=== PATIENT | female | born 2000 | race Asian ===

== ENCOUNTER 2022-04-03 06:04 | Day surgery (SDC) | payer SELFPAY ==
--- NOTE | 2022-04-03 | GASB_PTH ---
PATIENT: KAREN SOLO LOC: [facility] U#:[id number] AGE/SX: 21/F ROOM: RE04/03/[address]: Dr. Jam Deleon DO : 2000 BED: DIS: 04/03/2022 SPEC #: [id number] RECD: 04/03/22 13:23 STATUS: STEPHEN JORDAN #: [id number] BRENT: 04/03/22 00:[address]: Jam Deleon DEPT: SURGICAL PATHOLOGY RECD BY: Jimmie Pink ENTERED: 04/04/22 09:32 SP TYPE: Gastric Bx MI DR: Amairani Montana, MATEO Tissues: A - Gastric mucous membrane B - Duodenum, NOS C - Esophageal mucous membrane Procedures: Special Stain Group II Surgery Specimen Level IV Alcian Blue/PAS (control) HEADER OPERATION: EGD ([facility] [place]) PRE-OP DIAGNOSIS: Constipation, GERD, epigastric pain TISSUE SUBMITTED: A ? Gastric body biopsy, B ? Duodenum biopsy, C ? Distal esophagus biopsy MICROSCOPIC DIAGNOSIS A. Gastric body, biopsy: Chronic gastritis. See comment. B. Duodenum, biopsy: No pathologic change. C. Distal esophagus, biopsy: Gastroesophageal junctional mucosa with chronic inflammation. Focal changes of reflux. No evidence of goblet cell metaplasia. See comment. AM:perla 04/05/2022 COMMENT A. The results of immunohistochemistry for Helicobacter pylori will be reported separately ([id number]). C. Alcian blue/PAS stain with matched control supports the above diagnosis. MICROSCOPIC DESCRIPTION Slides are reviewed. GROSS DESCRIPTION A - Received in fixative is one container labeled with the patient's name and designated gastric body biopsy. The specimen consists of two irregular fragments of light purdy soft tissue that in aggregate measure 0.6 x 0.3 x 0.1 cm. The specimen is totally submitted in one cassette. B - Received in fixative is one container labeled with the patient's name and designated duodenum biopsy. The specimen consists of one irregular fragment of light purdy soft tissue that measures 0.3 x 0.2 x 0.1 cm. The specimen is totally submitted in one cassette. C - Received in fixative is one container labeled with the patient's name and designated distal esophagus biopsy. The specimen consists of one irregular fragment of light purdy soft tissue that measures 0.5 x 0.3 x 0.1 cm. The specimen is totally submitted in one cassette. / AM:perla 04/04/2022 TC:3 CPT: 84496 x3, 48568
[2022-04-03 06:36] LABS: Internal QC Validated? YES +Cl - CLEAR BKGD; Pregnancy, Urine Negative Negative
[2022-04-03 06:42] VITALS: BP 111/72; PULSE 89; RESP 18; TEMP 37.3; O2SAT 100; BMI 18.7
[2022-04-03] MEDS: Lactated Ringers 1,000 ML 15 ML IV (06:47)
--- NOTE | 2022-04-03 07:00 | IMM_PTH ---
PATIENT: KAREN SOLO LOC: [facility] U#:[id number] AGE/SX: 21/F ROOM: RE04/03/[address]: Dr. Jam Deleon DO : 2000 BED: DIS: 04/03/2022 SPEC #: [id number] RECD: 04/04/22 09:46 STATUS: STEPHEN JORDAN #: [id number] BRENT: 04/03/22 07:[address]: Jam Deleon DEPT: IMMUNOHISTOCHEMISTRY RECD BY: Ave Smart ENTERED: 04/04/22 09:47 SP TYPE: IMMUNO OTHR DR: Amairani Montana, MATEO Tissues: A - Stomach, NOS Procedures: H Pylori (initial) PHYSICIAN & INSTITUTION [place] [id number] SPECIMEN INFORMATION: Tissue Source: A ? Gastric body biopsy Clinical Info: Constipation, GERD, epigastric pain Specimen Number: [id number] CPT code: 59227 METHODOLOGY: Deparaffinized sections of prefer/formalin-fixed tissue or PAP/DQ stained slides are incubated with monoclonal/polyclonal antibodies/oligonucleotide probes. Localization is made via biotin free immunoperoxidase method. Appropriate controls are performed and reacted as expected. Results on target cell population are indicated in the following table: RESULTS: ANTIBODY / CLONE RESULT Block A H Pylori (polyclonal) positive These tests were developed and their performance characteristics determined by [facility]. They may not have been cleared or approved by the U.S. Food and Drug Administration. The FDA has determined that such clearance or approval is not necessary. The above immunohistochemical/dualISH markers are ordered and reviewed by the Pathologist. INTERPRETATION: A. Gastric body, biopsy: Positive for Helicobacter pylori. AM:perla 04/05/2022
--- NOTE | 2022-04-03 07:05 | PCM.HP.BLA ---
History and Physical Date of Admission: 04/03/22 KAREN SOLO, is a 21 F who presents to the office today for epigastric pain which began in 08/2021. Prior to that she has had CP which she attributes to acid reflux, for as long as she can remember. For approx 2 yrs she has had nausea when she first gets up, doesn't vomit then. She has BM 2-3x per week, has to strain, can be normal shape or melisa. Gets bloated, no pain related to that. Prunes gave her diarrhea. Feels better with fiber supplement. She has diarrhea if she eats greasy or spicy foods. No hematochezia or melena. She took omeprazole 40 mg daily for one month, prior to that she took omeprazole 20 mg QD; higher dose helped with acid reflux but not with epigastric pain. Tried probiotics w/o relief. Weight fluctuates by 10 lbs. No NSAIDs. RUQ US normal on 11/29/21 PMH: migraines ROS Const Constitutional: Positive for headache(s); No fatigue ENT ENT: Positive for headache(s); No difficulty swallowing Gastro GI: Positive for abdominal pain, bloating, constipation, excessive flatus and nausea/dyspepsia; No belching, change in bowel habits, change in stool character, coffee ground emesis, cramping, diarrhea, heartburn, difficulty swallowing, feeling full early, incontinent of stools, Vomiting blood/hematemesis, Blood in stool, loose stools, Black,tarry stools, pain with swallowing, vomiting or other Musc Musculoskeletal: Positive for back pain and stiffness; No joint pain Skin Skin: No yellowing of the eye or itchy eyes Neuro Neurology: Positive for headache(s) Psych Psychiatric: No anxiety and No depression Endo Endocrine: No fatigue Aller/Imm Allergy/Immunologic: No itchy eyes [place]/Lymp Hematologic/Lymphatic: Positive for easy bruising; No easy bleeding Exam Const General: cooperative, healthy appearing, no acute distress, well developed and well groomed Nutritional Appearance: thin Eyes Conjunctivae: conjunctivae normal Sclera: sclerae normal Resp Effort & Inspection: normal respiratory effort GI Inspection: normal to inspection Palpation: soft and tender in the epigastrum Skin General: no rashes or lesions noted Extrem General: no pedal edema Quality Reporting Tobacco Screening ([facility]) Smoking Status: Never smoker Assessment and Plan Assessment and Plan (1) Constipation: ?Status:?Acute (2) GERD (gastroesophageal reflux disease): ?Status:?Inactive (3) Epigastric pain: ?Status:?Inactive ?Plan - Steffanie Fraga TECHNICAL COMMUNICATION TEACHER, TECHNICAL COMMUNICATION TEACHER-C: 21 yr old [place] female with longstanding acid reflux, and 4+months of epigastric pain that hasn't responded to PPI. We will get her scheduled for EGD to [facility] for [facility] considering lifelong hx of acid reflux, this will be in March. Rx pantoprazole 40 mg daily, and one month of sucralfate TID. Discussed managing constipation, try EITHER kiwi supplement or aloe vera supplement or mineral/castor oil. f/u 2 wks after EGD. Plan Details Other Medications: ?New: ? pantoprazole 40 mg? PO QAM 30 tabs 2RF ? ? ? sucralfate 1 g? PO QAC 90 tabs 0RF stomach pain ?Discontinued: ? omeprazole ?? Discontinued Reason:? Pt no longer taking 40 mg? PO DAILY ? ? I have re-examined the patient. There are no clinical changes since date of exam.
[2022-04-03 07:25] VITALS: BP 111/72; BP 86/51; PULSE 87; RESP 16; TEMP 36.6; O2SAT 99
--- NOTE | 2022-04-03 07:26 | OP.EGD_ITS ---
Patient Name: Juana Saravia Procedure Date: 04/03/2022 7:05 AM Date of : 2000 Age: 21 Procedure: Upper GI endoscopy Indications: Epigastric abdominal pain, Heartburn Providers: Jam Deleon DO Medicines: Monitored Anesthesia Care Patient Profile: This is a 21 year old female. Refer to note in patient chart for documentation of history and physical. Patient has symptoms of acute abdominal cramping and acute epigastric abdominal pain. Complications: No immediate complications. Procedure: Pre-Anesthesia Assessment: - Prior to the procedure, a History and Physical was performed, and patient medications and allergies were reviewed. The patient is competent. The risks and benefits of the procedure and the sedation options and risks were discussed with the patient. All questions were answered and informed consent was obtained. Patient identification and proposed procedure were verified by the physician in the pre-procedure area. Mental Status Examination: alert and oriented. Airway Examination: normal oropharyngeal airway and neck mobility. Respiratory Examination: clear to auscultation. CV Examination: normal. Prophylactic Antibiotics: The patient does not require prophylactic antibiotics. Prior Anticoagulants: The patient has taken no previous anticoagulant or antiplatelet agents. After reviewing the risks and benefits, the patient was deemed in satisfactory condition to undergo the procedure. The anesthesia plan was to use moderate sedation / analgesia (conscious sedation). Immediately prior to administration of medications, the patient was re-assessed for adequacy to receive sedatives. The heart rate, respiratory rate, oxygen saturations, blood pressure, adequacy of pulmonary ventilation, and response to care were monitored throughout the procedure. The physical status of the patient was re-assessed after the procedure. After obtaining informed consent, the endoscope was passed under direct vision. Throughout the procedure, the patient's blood pressure, pulse, and oxygen saturations were monitored continuously. The gastroscope was introduced through the mouth, and advanced to the second part of duodenum. The upper GI endoscopy was accomplished without difficulty. The patient tolerated the procedure well. Scope In: 7:16:07 AM Scope Out: 7:20:35 AM Total Procedure Duration Time 0 hours 4 minutes 28 seconds Findings: The Z-line was irregular and was found 37 cm from the incisors. Biopsies were taken with a cold forceps for histology. Diffuse severe inflammation characterized by erosions and erythema was found in the entire examined stomach. Biopsies were taken with a cold forceps for histology. Verification of patient identification for the specimen was done. The first portion of the duodenum was normal. Biopsies were taken with a cold forceps for histology. Verification of patient identification for the specimen was done. Estimated blood loss was minimal. Impression: - Z-line irregular, 37 cm from the incisors. Biopsied. - Chronic gastritis. Biopsied. - Normal first portion of the duodenum. Biopsied. Recommendation: - Discharge patient to home. - Resume previous diet. - Continue present medications. - Await pathology results. Procedure Code(s): --- Professional --- 07637, Esophagogastroduodenoscopy, flexible, transoral; with biopsy, single or multiple CPT copyright 2017 [employer]. All rights reserved. The codes documented in this report are preliminary and upon sports director review may be revised to meet current compliance requirements. Jam Deleon DO 04/03/2022 7:26:03 AM This report has been signed electronically. Number of Addenda: 1 Note Initiated On: 04/03/2022 7:05 AM Addendum Number: 1 Addendum Date: 06/19/2022 6:16:18 AM MAC was used as sedation for this procedure. Jam Deleon DO 06/19/2022 6:16:24 AM This report has been signed electronically.
[2022-04-03 07:31] VITALS: BP 111/72; BP 85/50; PULSE 85; RESP 16; O2SAT 99
[2022-04-03 07:34] VITALS: BP 111/72; BP 92/51; PULSE 82; RESP 16; O2SAT 98
[2022-04-03 07:40] VITALS: BP 101/62; BP 111/72; BP 96/70; PULSE 80; RESP 16; TEMP 36.6; O2SAT 100
[2022-04-03 07:42] VITALS: BP 111/72
== END 2022-04-03 08:10 | disposition home or self-care (01) ==
LOC: EN 06:07 → AC 06:08
PROVIDERS: Anesthesiology; PCP Nurse Practitioner Primary Care; Referring Provider Internal Medicine Gastroenterology; Visit Provider Internal Medicine Gastroenterology
PROC: 0DJ08ZZ Inspection of Upper Intestinal Tract, Via Natural or Artificial Opening Endoscopic (ICD-10-PCS; CPT 43235; principal; 2022-04-03 06:55)
DX: K29.50 Unspecified chronic gastritis without bleeding (principal); B96.81 Helicobacter pylori [H. pylori] as the cause of diseases classified elsewhere; K59.00 Constipation, unspecified; K21.9 Gastro-esophageal reflux disease without esophagitis
CPT/HCPCS: 43239; 81025; 88305; 88313; 88342; J7120; J2405